=== PATIENT | male | born 1990 | race Hispanic/Latino ===

== ENCOUNTER 2019-09-10 07:52 | Emergency (ER) | payer OTHER ==
[~2019-09-10] VITALS: Ht 167.6 cm; Wt 133.8 kg
--- NOTE | 2019-09-10 08:56 | Emergency Department Note ---
History of Present Illnes History of Present Illness Chief Complaint: Genitourinary History of Present Illness This is a 29 year old male with a 2 day history of hematuria. He had one episode of right flank pain yesterday, that he describes as a "pinch," and only lasted a few seconds, without radiation. Denies previous history of similar symptoms. 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 He denies any epistaxis, bleeding of the gums or rectal bleeding. No N/V/F/C. He also denies any history of hematuria. He is having no dysuria, frequency, urgency or hesitancy. Historian: Patient Arrival Mode: Car Additional Treatment IMPROVEMENT LEADER: none Sweatband Maker Required: No Onset (how long ago): day(s) (1) Radiation: non-radiation Severity: mild Onset quality: sudden Duration (how long): day(s) (1) Timing of current episode: intermittent, other Progression: waxing and waning Chronicity: new Context: recent illness, recent travel, trauma/injury, new medications, hx of DVT/PE (LLE DVT in 2016 ) Relieving factors: none Exacerbating factors: none Associated symptoms: denies other symptoms Treatments prior to arrival: none Past Medical/Family History Physician Review I have reviewed the patient's past medical and family history. Any updates have been documented here. Past Medical History Recent Fever: No Clinical Suspicion of Infectio: No New/Unexplained Change in Ment: No Past Medical History: Diabetes, DVT/PE Other Medical History: MORBID OBESITY Past Surgical History: Hernia Repair Other Surgery: REPAIRED INFANT Social History Smoking Cessation: Never Smoker Counseling Performed: No Alcohol Use: None Any Illegal Drug Use: No TB Exposure/Symptoms: No Physically hurt or threatened: No Other Last Tetanus: UNK Any Pre-Existing Lines (PICC,: No Is patient up to date on immun: No (UNK BY PT) Last Flu: YES Last Pneumovax: NO Review of Systems Review of Systems Constitutional: no symptoms EENTM: no symptoms Cardiovascular: no symptoms, as per HPI, chest pain, edema, palpitations, syncope, other Respiratory: no symptoms Gastrointestinal: no symptoms Genitourinary: hematuria, pain (fleeting right sided flank pain yesterday) Musculoskeletal: no symptoms Neurological: no symptoms Psychological: no symptoms Endocrine: no symptoms Hematological/Lymphatic: no symptoms Review of other systems All other systems reviewed and negative. Physical Exam Related Data Allergies: Coded Allergies: Penicillins (Verified Allergy, Unknown, 09/10/19) Triage Vital Signs Vital Signs Date Time Temp Pulse Resp B/P (MAP) Pulse Ox O2 Delivery O2 Flow Rate FiO2 09/10/19 08:13 98.3 56 18 158/94 100 Vital signs reviewed: Yes Physical Exam CONSTITUTIONAL Constitutional: well-developed, well-nourished, morbidly obese HENT HENT: normocephalic, atraumatic, oropharynx clear/moist, nose normal HENT L/R: left ext ear normal, right ext ear normal EYES Eyes: PERRL, conjunctivae normal NECK Neck: ROM normal PULMONARY Pulmonary: effort normal, breath sounds normal CARDIOVASCULAR Cardiovascular: regular rhythm, heart sounds normal, capillary refill normal, normal rate GASTROINTESTINAL Abdominal: soft, nontender, bowel sounds normal GENITOURINARY Genitourinary: exam deferred SKIN Skin: warm, dry (no bruising) MUSCULOSKELETAL Musculoskeletal: ROM normal NEUROLOGICAL Neurological: alert, oriented x 3, no gross motor or sensory deficits PSYCHOLOGICAL Psychological: mood/affect normal, judgement normal Results Laboratory Lab results reviewed: Yes Laboratory comments CBC - nl except for H/H = 17/51.1 CMP - normal PT/INR = 13/1.1 UA - negative, except for large blood. Imaging Imaging results reviewed: Yes Imaging Comments [place] [address] Patient Name: SANJUANITA ANDREWS MR #: [id number] : 1990 Age/Sex: 29/M Req #: [id number] Adm Physician: Ordered by: RAQUEL COSTELLO MD Report #: [id number] Location: [facility] Room/Bed: Procedure: [id number] HOPD/CT ABD/PEL WO CONTRAST-HOPD Exam Date: 09/10/19 Exam Time: 927 REPORT STATUS: Signed CT of the abdomen and pelvis. Comparison: None Clinical History: Hematuria with abdominal pain Technique: Helical CT scan of the abdomen and pelvis was performed. Intravenous contrast administration was not utilized. Oral contrast administration was not utilized. Coronal and sagittal reconstructions were generated from the raw data. Multiple images were submitted for interpretation. This exam was performed according to our departmental dose-optimization program which includes automated exposure control, adjustment of the mA and/or kV according to patient size Discussion: Inferior chest: Unremarkable. Liver: Unremarkable Spleen: Unremarkable Pancreas: Unremarkable Biliary tree and gallbladder: Multiple cholesterol containing gallstones in the gallbladder without cholecystitis. No biliary ductal stones. Adrenal glands: Unremarkable Kidneys and ureters: An 8 mm calculus in the left ureter at the pelvic inlet. No hydronephrosis in the left kidney. No hydroureter. No perinephric stranding. No edema of the left kidney. Vasculature: Unremarkable Lymph nodes: Multiple small lymph nodes in the periaortic location. Nonpathologic by size criteria. Bowel: Unremarkable Pelvis: Urinary bladder is unremarkable. Prostate unremarkable. Seminal vesicles unremarkable. Pelvic wall unremarkable. Peritoneum: Unremarkable Perineal compartments: unremarkable. Fluid: No free fluid Bones: Unremarkable Body wall: Unremarkable Impression: 8 mm left ureteric calculus as described above without associated hydronephrosis or hydroureter or other signs of renal inflammation. Signed by: Ross Desouza MD on 09/10/2019 10:18 AM Dictated By: ROSS DESOUZA MD [id number] Transcribed By: DOMINGA on 09/10/19 1018 COPY TO: RAQUEL COSTELLO MD~ Diagnostics Tests Diagnostic test(s) reviewed: Yes Critical Care Time Subsequent provider I assumed direction of critical care for this patient from another provider of m y specialty. Assessment & Plan Assessment & Plan Final Impression: (1) Hematuria (2) Nephrolithiasis (3) Diabetes (4) Leg DVT (deep venous thromboembolism), chronic Assessment & Plan - Pt with an 8mm stone at left UPJ junction, with no Hydronephrosis or Hydroureter. Pt is completely pain free and without signs or symptoms of infection of urine. - Case discussed with Patient's PCP, Dr. Mark Norris, who will see patient in the office today. He will also refer to Urology, due to size of stone and high possibility that he may not be able to pass it on his own. Dr. Norris will also discuss with Cardiology, whether or not the dose of Xarelto can be lowered. - Discussed with patient, and he voiced understanding of the plan. He is to increase water intake. Pt voiced understanding of the plan, and will take all diagnostics with him to F/u with PCP. Depart Disposition: HOME, SELF-CARE Last Vital Signs Date Time Temp Pulse Resp B/P (MAP) Pulse Ox O2 Delivery O2 Flow Rate FiO2 09/10/19 08:13 98.3 56 18 158/94 100 Medications in the ED none RAQUEL COSTELLO MD September 10, 2019 08:56
[2019-09-10] MEDS ORDERED: SODIUM CHLORIDE 0.9% 1000ML 1,000 ML IV SCH (09:00)
--- NOTE | 2019-09-10 10:21 | Diagnostic Imaging Report ---
CT of the abdomen and pelvis. Comparison: None Clinical History: Hematuria with abdominal pain Technique: Helical CT scan of the abdomen and pelvis was performed. Intravenous contrast administration was not utilized. Oral contrast administration was not utilized. Coronal and sagittal reconstructions were generated from the raw data. Multiple images were submitted for interpretation. This exam was performed according to our departmental dose-optimization program which includes automated exposure control, adjustment of the mA and/or kV according to patient size Discussion: Inferior chest: Unremarkable. Liver: Unremarkable Spleen: Unremarkable Pancreas: Unremarkable Biliary tree and gallbladder: Multiple cholesterol containing gallstones in the gallbladder without cholecystitis. No biliary ductal stones. Adrenal glands: Unremarkable Kidneys and ureters: An 8 mm calculus in the left ureter at the pelvic inlet. No hydronephrosis in the left kidney. No hydroureter. No perinephric stranding. No edema of the left kidney. Vasculature: Unremarkable Lymph nodes: Multiple small lymph nodes in the periaortic location. Nonpathologic by size criteria. Bowel: Unremarkable Pelvis: Urinary bladder is unremarkable. Prostate unremarkable. Seminal vesicles unremarkable. Pelvic wall unremarkable. Peritoneum: Unremarkable Perineal compartments: unremarkable. Fluid: No free fluid Bones: Unremarkable Body wall: Unremarkable Impression: 8 mm left ureteric calculus as described above without associated hydronephrosis or hydroureter or other signs of renal inflammation. Signed by: Manny Fallon MD on 09/10/2019 10:18 AM
[2019-09-10 11:19] VITALS: BP 145/81
--- OUTSIDE RECORDS SUMMARY | 2019-09-11 08:51 | XMS REPORT ---
Author Author [facility] t Organization [facility] Address [address] [place] [id number] Phone Unavailable Care Team Providers Care Ict Managers Name Role Phone Mary GOOD PCP Jarek COSTELLO Attphys Unavailable Payers Payer Name Policy Type Policy Number Effective Date Expiration Date S ource Advance Directives Directive Decision Effective Date Termination Date Comments Sour ce Yes N/A [facility] Problems Condition Name Condition Details Condition Category Status Onset Date Resolution Date Last Treatment Date Treating Clinician Comments Source Hematuria Problem [facility] Calculus of kidney Problem [facility] Diabetes mellitus Problem [facility] Allergies, Adverse Reactions, Alerts Allergy Name Allergy Type Status Severity Reaction(s) Onset Date Inacti ve Date Treating Clinician Comments Source Penicillin Allergy to substance Active 2019-09-10 00:00:00 [facility] Penicillins DA Active U 2013-01-17 00:00:00 [facility] Social History Social Habit Start Date Stop Date Quantity Comments Source Sex Assigned At 1990 00:00:00 1990 00:00:00 Male [facility] Medications This patient has no known medications. Vital Signs Vital Name Observation Time Observation Value Comments Source Weight 2019-09-10 08:13:00 295 [lb_av] [facility] BMI (Body Mass Index) 2019-09-10 08:13:00 47.6 kg/m2 [facility] Procedures This patient has no known procedures. Plan of Care Planned Activity Planned Date Details Comments Source Goal Patient referral [code = [id number] ] [facility] Instructions Hematuria - Male [facility] Instructions Kidney Stones [facility] Encounters Start Date/Time End Date/Time Encounter Type Admission Type Attendi [facility] Facility Care Department Encounter ID Source 2019-09-10 07:52:00 2019-09-10 11:20:00 Departed Emergency Room 1 RAQUEL COSTELLO [facility] [id number] [facility] Results Test Description Test Time Test Comments Results Result Comments Source CT ABD/PEL WO CONTRAST-HOPD 2019-09-10 10:15:00 [facility] [address] [place] [address] Patient Name: SANJUANITA ANDREWS MR #: [id number] : 1990 Age/Sex: 29/M Req #: [id number] Adm Physician: Ordered by: RAQUEL COSTELLO MD Report #: [id number] Location: [facility] Room/Bed: Procedure: [id number] HOPD/CT ABD/PEL WO CONTRAST-HOPD Exam Date: 09/10/19 Exam Time: 927 REPORT STATUS: Signed CT of the abdomen and pelvis. Comparison: None Clinical History: Hematuria with abdominal pain Technique: Helical CT scan of the abdomen and pelvis was performed. Intravenous contrast administration was not utilized. Oral contrast adminis tration was not utilized. Coronal and sagittal reconstructions were generated from the raw data. Multiple images were submitted for interpretation. This exam was performed according to our departmental dose-optimization program which includes automated exposure control, adjustment of the mA and/or kV according to patient size Discussion: Inferior chest: Unremarkable. Liver: Unremarkable Spleen: Unremarkable Pancreas: Unremarkable Biliary tree and gallbladder: Multiple cholesterol containing gallstones in the gallbladder without cholecystitis. No biliary ductal stones. Adrenal glands: Unremarkable Kidneys and ureters: An 8 mm calculus in the left ureter at the pelvic inlet. No hydronephrosis in the left kidney. No hydroureter. No perinephric stranding. No edema of the left kidney. Vasculature: Unremarkable Lymph nodes: Multiple small lymph nodes in the periaortic location. Nonpathologic by size criteria. Bowel: Unremarkable Pelvis: Urinary bladder is unremarkable. Prostate unremarkable. Seminal vesicles unremarkable. Pelvic wall unremarkable. Peritoneum: Unremarkable Perineal compartments: unremarkable. Fluid: No free fluid Bones: Unremarkable Body wall: Unremarkable Impression: 8 mm left ureteric calculus as described above without associated hydronephrosis or hydroureter or other signs of renal inflammation. Signed by: Ross Desouza MD on 09/10/2019 10:18 AM Dictated By: ROSS DESOUZA MD 1018 Transcribed By: DOMINGA on 09/10/19 10 18 COPY TO: RAQUEL COSTELLO MD
== END 2019-09-10 11:20 | disposition home or self-care (01) ==
LOC: FSED 07:52
DX: R31.9 Hematuria, unspecified (principal); R10.9 Unspecified abdominal pain; N20.0 Calculus of kidney; E11.9 Type 2 diabetes mellitus without complications; I82.592 Chronic embolism and thrombosis of other specified deep vein of left lower extremity; E66.01 Morbid (severe) obesity due to excess calories
CPT/HCPCS: 74176; 80053; 81003; 85025; 85610; 99284; J7030